=== PATIENT | male | born 1950 | race Caucasian/White ===

== ENCOUNTER 2020-09-30 07:44 | Day surgery (SDC) | payer MEDICARE, BC ==
[2020-09-30] MEDS: Polymyxin B/Trimethoprim 10 ML Bottle EYERT SCH ×4 (07:47→10:02)
[2020-09-30] MEDS: Tetracaine HCl/PF 0.5% 4 ML Bottle EYEBOTH SCH ×3 (07:49→09:48)
[2020-09-30] MEDS: Phenylephrine 2.5% Ophth Soln 2 ML Bot EYERT SCH ×6 (07:49→09:41)
[2020-09-30] MEDS: Lidocaine 1% PF 2 ML SDV INJECT SCH ×2 (07:50→09:49)
[2020-09-30] MEDS: Brimonidine 0.2% Ophth Soln 5 ML Bottle EYERT SCH ×4 (07:50→10:02)
[2020-09-30] MEDS: Pilocarpine 4% Ophth Soln 15 ML Bot EYERT SCH ×2 (07:50→10:02)
[2020-09-30] MEDS: Cefuroxime 10 MG/ML SYRINGE EYERT SCH ×2 (07:50→10:01)
[2020-09-30] MEDS: Tropicamide 1% Ophth Soln 15 ML Bottle EYERT SCH ×4 (08:03→09:15)
--- NOTE | 2020-09-30 08:20 | PCM.PREANE ---
Preanesthetic Assessment - Procedure Proposed Procedure: right eye extraction of cataract with implant eye - Anesthesia/Transfusion/Family Hx Anesthesia History: No Prior Anesthesia Family History of Anesthesia Reaction: No Transfusion History: No Prior Transfusion(s) Intubation History: Unknown - Review of Systems General: No Symptoms Pulmonary: No Symptoms Cardiovascular: No Symptoms Gastrointestinal: No Symptoms Neurological: No Symptoms Other: Reports: None, Easy Bleeding (on aspirin , bruises on arms ), Easy Bruising - Physical Assessment NPO Status Date: 09/30/20 NPO Status Time: 20:00 Height: 1.68 m ASA Class: 3 Mental Status: Alert & Oriented x3 Airway Class: Mallampati = 1 Dentition: Reports: Normal Dentition Thyro-Mental Finger Breadths: 3 Mouth Opening Finger Breadths: 4 ROM/Head Extension: Full Lungs: Clear to Auscultation, Normal Respiratory Effort Cardiovascular: Regular Rate, Regular Rhythm - Allergies Allergies/Adverse Reactions: Allergies Allergy/AdvReac Type Severity Reaction Status Date / Time No Known Allergies Allergy Verified 09/29/20 13:50 - Blood Blood Available: No - Anesthesia Plan Pre-Op Medication Ordered: None - Acknowledgements Anesthesia Type Planned: MAC Pt an Appropriate Candidate for the Planned Anesthesia: Yes Alternatives and Risks of Anesthesia Discussed w Pt/Guardian: Yes Pt/Guardian Understands and Agrees with Anesthesia Plan: Yes PreAnesthesia Questionnaire Cardiovascular History: Reports: CAD, Other (See Below) (x2 stents) - HOME MEDS Home Medications: Home Meds Aspirin 81 mg PO BEDTIME 09/29/20 [History] Carboxymethylcellulose Sodium [Artificial Tears] 1 drop EYEBOTH BEDTIME 09/29/20 [History] Dutasteride [Avodart] 0.5 mg PO BEDTIME 09/29/20 [History] Ezetimibe [Zetia] 10 mg PO BEDTIME 09/29/20 [History] Metoprolol Succinate [Toprol XL] 25 mg PO BEDTIME 09/29/20 [History] atorvaSTATin [Lipitor] 80 mg PO BEDTIME 09/29/20 [History] lisinopriL [Lisinopril] 2.5 mg PO BEDTIME 09/29/20 [History] metFORMIN [Glucophage] 500 mg PO BEDTIME 09/29/20 [History] - CURRENT (IN HOUSE) MEDS Current Meds: Current Medications Brimonidine Tartrate (Brimonidine 0.2% Ophth Soln 5 Ml Bottle) 0 ml EYERT ASDIRECTED [facility] Stop: 09/30/20 18:00 Last Admin: 09/30/20 07:52 Dose: 1 drop Documented by: Cefuroxime Sodium (Cefuroxime 10 Mg/Ml Syringe) 0 mg EYERT ASDIRECTED [facility] Stop: 09/30/20 18:00 Last Admin: 09/30/20 07:50 Dose: 1 mg Documented by: Lidocaine HCl (Lidocaine 1% Pf 2 Ml Sdv) 0 ml INJECT ASDIRECTED [facility] Stop: 09/30/20 18:00 Last Admin: 09/30/20 07:50 Dose: 1 ml Documented by: Phenylephrine HCl (Phenylephrine 2.5% Ophth Soln 2 Ml Bot) 0 ml EYERT ASDIRECTED [facility] Stop: 09/30/20 18:00 Last Admin: 09/30/20 08:09 Dose: 1 drop Documented by: Pilocarpine HCl (Pilocarpine 4% Ophth Soln 15 Ml Bot) 0 ml EYERT ASDIRECTED [facility] Stop: 09/30/20 18:00 Last Admin: 09/30/20 07:50 Dose: 1 ml Documented by: Polymyxin/Trimethoprim Sulfate (Polymyxin B/Trimethoprim 10 Ml Bottle) 0 ml EYERT ASDIRECTED [facility] Stop: 09/30/20 18:00 Last Admin: 09/30/20 07:50 Dose: 1 ml Documented by: Tetracaine HCl (Tetracaine Hcl/Pf 0.5% 4 Ml Bottle) 0 ml EYEBOTH ASDIRECTED [facility] Stop: 09/30/20 18:00 Last Admin: 09/30/20 07:49 Dose: 1 ml Documented by: Tropicamide (Tropicamide 1% Ophth Soln 15 Ml Bottle) 0 ml EYERT ASDIRECTED [facility] Stop: 09/30/20 18:00 Last Admin: 09/30/20 08:03 Dose: 1 drop Documented by:
--- NOTE | 2020-09-30 10:12 | PCM48HPAN ---
Post Anesthesia Note - EVALUATION WITHIN 48HRS OF ANESTHETIC Vital Signs in Normal Range: Yes Patient Participated in Evaluation: Yes Respiratory Function Stable: Yes Airway Patent: Yes Cardiovascular Function Stable: Yes Hydration Status Stable: Yes Pain Control Satisfactory: Yes Nausea and Vomiting Control Satisfactory: Yes Mental Status Recovered: Yes Vital Signs: Last Vital Signs Temp 36.3 C 09/30/20 07:35 Pulse 57 L 09/30/20 07:35 Resp 16 09/30/20 07:35 BP 158/84 H 09/30/20 07:35 Pulse Ox 97 09/30/20 07:35
== END 2020-09-30 10:11 | disposition home or self-care (01) ==
LOC: JD.SDS 07:44
PROVIDERS: ATTEND Ophthalmology
DX: E11.36 Type 2 diabetes mellitus with diabetic cataract (principal); H25.811 Combined forms of age-related cataract, right eye; H02.834 Dermatochalasis of left upper eyelid; H02.831 Dermatochalasis of right upper eyelid; E78.00 Pure hypercholesterolemia, unspecified; I10 Essential (primary) hypertension; Z96.1 Presence of intraocular lens; Z98.890 Other specified postprocedural states
CPT/HCPCS: 66984; J0697; V2632